=== PATIENT | female | born 1980 | race Caucasian/White ===

== ENCOUNTER 2017-03-24 21:31 | Inpatient (IN) | payer MEDICAID ==
[2017-03-24] MEDS ORDERED: ACETAMINOPHEN 650 MG SUPP PR (23:30)
[2017-03-24] MEDS ORDERED: ONDANSETRON 4 MG INJ IV (23:30)
[2017-03-24] MEDS ORDERED: DIPHENHYDRAMINE 25 MG CAP PO (23:30)
[2017-03-25] MEDS ORDERED: ERYTHROMYCIN LACTOBIONATE 500 MG in SOD CHLORIDE 0.9% 100 ML IVPB
[2017-03-25] MEDS: LACTATED RINGER'S 500 ML IV (00:01)
[2017-03-25 00:04] LABS: ADD MAN DIFF? NO; BASOPHILS % 0.1 % (0.0-2.0); EOSINOPHILS # 0.1 10^3/ul (0.0-0.5); EOSINOPHILS % 1.8 % (0.0-7.0); HEMATOCRIT 33.2 % (37.0-47.0); HEMOGLOBIN 11.4 g/dl (12.0-16.0); LYMPHOCYTES # 1.3 10^3/ul (0.8-2.9); LYMPHOCYTES % 16.6 % (15.0-51.0); MEAN CORPUSCULAR HEMOGLOBIN 28.6 pg (29.0-33.0); MEAN CORPUSCULAR HGB CONC 34.3 g/dl (32.0-37.0); MEAN CORPUSCULAR VOLUME 83.2 fl (82.0-101.0); MEAN PLATELET VOLUME 8.9 fl (7.4-10.4); MONOCYTE # 0.5 10^3/ul (0.3-0.9); MONOCYTES % 6.7 % (0.0-11.0); NEUTROPHIL # 5.9 10^3/ul (1.6-7.5); NEUTROPHILS % 74.2 % (39.0-77.0); PLATELET COUNT 259 10^3/UL (140-415); RED BLOOD COUNT 3.99 10^6/ul (4.20-5.40); RED CELL DISTRIBUTION WIDTH 13.9 % (11.5-14.5)
[2017-03-25] MEDS: AMPICILLIN 2 GM/NS (PMX) 100 ML IV (00:06)
[2017-03-25] MEDS: MAGNESIUM SULFATE 4 GM/100 ML 100 ML IV (00:11)
[2017-03-25 00:12] LABS: RUPTURE FETAL MEMBRANES POSITIVE (NEGATIVE)
[2017-03-25] MEDS: BETAMET NA PHOS/AC(6 MG/ML) 5ML INJ IM ×2 (00:13→17:41)
[2017-03-25 00:24] LABS: INR 0.86; PARTIAL THROMBOPLASTIN TIME 28.1 Sec (25.0-35.0); PROTIME 11.8 Sec (11.9-14.9); PT RATIO 0.9
[2017-03-25] MEDS: MAGNESIUM SULFATE 20 GM/500 ML 500 ML IV ×3 (00:45→20:07)
[2017-03-25] MEDS: AZITHROMYCIN 500MG/NS (PMX) 250 ML IV (02:09)
[2017-03-25] MEDS: AMPICILLIN 1 GM/NS (PMX) 50 ML IV ×6 (04:03→23:30)
[2017-03-25 07:08] LABS: MAGNESIUM 4.8 mg/dl (1.7-2.5)
[2017-03-25] MEDS: PRENATAL VITAMIN PO ×2 (08:32→09:39)
[2017-03-25] MEDS: URSODIOL 300 MG CAP PO ×3 (09:44→21:52)
[2017-03-25] MEDS: DOCUSATE SODIUM 100 MG CAP PO (09:44)
[2017-03-25] MEDS: LACTATED RINGER'S 1,000 ML IV (10:23)
[2017-03-25] MEDS: FAMOTIDINE 20 MG TAB PO ×2 (10:30→21:17)
[2017-03-25 12:23] LABS: MAGNESIUM 5.3 mg/dl (1.7-2.5)
[2017-03-25] MEDS: TERBUTALINE 1 MG/ML INJ SC (17:43)
[2017-03-25] MEDS: CITRIC ACID/SODIUM CITRATE 15 ML CUP PO (18:30)
[2017-03-25] MEDS ORDERED: morphine SULFATE/PF (10 MG/10 ML) INJ (19:44)
[2017-03-25] MEDS: CEFAZOLIN 2 GM/50 ML (PMX) 50 ML IVPB (19:55)
[2017-03-25] MEDS ORDERED: PHENYLephrine (100 MCG/ML) 5ML SYG ×7 (19:56→20:34)
[2017-03-25] MEDS ORDERED: NALOXONE (0.4 MG/ML) INJ IV (20:30)
[2017-03-25] MEDS ORDERED: HYDROmorphONE 0.5 MG/0.5 ML SYG IV ×2 (20:30)
[2017-03-25] MEDS ORDERED: FENTAnyl 50 MCG/ML VIAL IV ×2 (20:30)
[2017-03-25] MEDS ORDERED: METOCLOPRAMIDE 10 MG INJ IV (20:30)
[2017-03-25] MEDS ORDERED: ONDANSETRON 4 MG INJ IV ×2 (20:30)
[2017-03-25] MEDS ORDERED: HYDROmorphONE (0.2 MG/ML) 10ML SYG IV (20:30)
[2017-03-25] MEDS ORDERED: KETOROLAC 30 MG INJ IV (20:30)
[2017-03-25] MEDS ORDERED: VASOPRESSIN 20 UNITS INJ (20:36)
[2017-03-25] MEDS ORDERED: OXYTOCIN 30 UNITS/LR 500 ML IV (21:21)
[2017-03-25] MEDS: DIPHENHYDRAMINE 50 MG INJ IV ×2 (21:52→23:20)
[2017-03-25] MEDS: OXYTOCIN 30 UNITS/LR 500 ML IV (21:53)
[2017-03-25 22:23] LABS: RAPID PLASMA REAGIN NONREACTIVE (NR)
[2017-03-25] MEDS: HYDROmorphONE (0.2 MG/ML) 10ML SYG IV (23:14)
[2017-03-25 23:35] LABS: HEPATITIS B SURFACE ANTIGEN NEGATIVE (NEGATIVE)
[2017-03-26] MEDS ORDERED: LANOLIN 7 GM TUBE TOP (01:30)
[2017-03-26] MEDS ORDERED: METHYLERGONOVINE 0.2 MG INJ IM (01:30)
[2017-03-26] MEDS ORDERED: CARBOPROST 250 MCG INJ IM (01:30)
[2017-03-26] MEDS ORDERED: OXYTOCIN 30 UNITS/LR 500 ML IV (01:30)
[2017-03-26] MEDS ORDERED: MISOPROSTOL 200 MCG TAB PR (01:30)
[2017-03-26] MEDS ORDERED: ZOLPIDEM 5 MG TAB PO (01:30)
[2017-03-26] MEDS ORDERED: ONDANSETRON 4 MG INJ IV (01:30)
[2017-03-26] MEDS ORDERED: DIPHENHYDRAMINE 50 MG INJ IV (01:30)
[2017-03-26] MEDS: CEFAZOLIN 2 GM/50 ML (PMX) 50 ML IV ×3 (01:44→17:19)
[2017-03-26] MEDS: LACTATED RINGER'S 1,000 ML IV ×8 (01:45→20:52)
[2017-03-26] MEDS: DIPHENHYDRAMINE 50 MG INJ IV ×3 (05:03→18:00)
[2017-03-26] MEDS ORDERED: URSODIOL 300 MG CAP PO (09:00)
[2017-03-26] MEDS: URSODIOL 300 MG CAP PO ×3 (09:53→21:24)
[2017-03-26] MEDS: FAMOTIDINE 20 MG TAB PO ×2 (09:53→21:24)
[2017-03-26] MEDS: SENNA/DOCUSATE NA (8.6MG/50MG) TAB PO ×2 (09:53→21:24)
[2017-03-26] MEDS: PRENATAL VITAMIN PO (09:53)
[2017-03-26 10:56] LABS: ADD MAN DIFF? NO
[2017-03-26 11:08] LABS: BASOPHILS % 0.1 % (0.0-2.0); HEMATOCRIT 24.5 % (37.0-47.0); HEMOGLOBIN 8.3 g/dl (12.0-16.0); LYMPHOCYTES # 1.1 10^3/ul (0.8-2.9); LYMPHOCYTES % 10.1 % (15.0-51.0); MEAN CORPUSCULAR HGB CONC 33.9 g/dl (32.0-37.0); MEAN CORPUSCULAR VOLUME 85.7 fl (82.0-101.0); MEAN PLATELET VOLUME 9.3 fl (7.4-10.4); MONOCYTE # 0.7 10^3/ul (0.3-0.9); MONOCYTES % 5.9 % (0.0-11.0); NEUTROPHIL # 9.1 10^3/ul (1.6-7.5); NEUTROPHILS % 83.1 % (39.0-77.0); PLATELET COUNT 266 10^3/UL (140-415); RED BLOOD COUNT 2.86 10^6/ul (4.20-5.40); RED CELL DISTRIBUTION WIDTH 14.5 % (11.5-14.5)
[2017-03-26 11:08] LABS: WHITE BLOOD COUNT 10.9 10^3/ul (4.8-10.8)
[2017-03-26] MEDS: KETOROLAC 30 MG INJ IV (15:12)
[2017-03-26] MEDS: OXYCODONE/ACETAMINOPHEN (5/325) TAB PO (21:25)
[2017-03-27] MEDS: IBUPROFEN 600 MG TAB PO ×5 (00:34→23:49)
[2017-03-27] MEDS: LACTATED RINGER'S 1,000 ML IV ×5 (01:03→09:39)
[2017-03-27] MEDS: SENNA/DOCUSATE NA (8.6MG/50MG) TAB PO ×2 (10:14→21:59)
[2017-03-27] MEDS: URSODIOL 300 MG CAP PO ×3 (10:14→21:59)
[2017-03-27] MEDS: INFLUENZA VIRUS VACCINE 0.5 ML (DISPENSING) IM* (10:14)
[2017-03-27] MEDS: FAMOTIDINE 20 MG TAB PO ×2 (10:14→21:59)
[2017-03-27] MEDS: PRENATAL VITAMIN PO (10:36)
[2017-03-27] MEDS: FERROUS GLUCONATE (EC) 325 MG TAB PO ×2 (13:24→21:59)
[2017-03-27] MEDS: OXYCODONE/ACETAMINOPHEN (5/325) TAB PO (16:32)
[2017-03-28] MEDS: IBUPROFEN 600 MG TAB PO ×2 (05:50→11:59)
[2017-03-28] MEDS: OXYCODONE/ACETAMINOPHEN (5/325) TAB PO ×2 (06:36→07:53)
[2017-03-28] MEDS: FAMOTIDINE 20 MG TAB PO (09:52)
[2017-03-28] MEDS: PRENATAL VITAMIN PO (09:52)
[2017-03-28] MEDS: URSODIOL 300 MG CAP PO ×2 (09:52→12:44)
[2017-03-28] MEDS: SENNA/DOCUSATE NA (8.6MG/50MG) TAB PO (09:52)
[2017-03-28] MEDS: FERROUS GLUCONATE (EC) 325 MG TAB PO (09:52)
[2017-03-28] MEDS: DIPHTH/TET/ACEL PERTUSS (ADULT) 0.5 ML VIAL IM* (09:53)
== END 2017-03-28 16:00 | disposition home or self-care (01) | DRG 765 ==
LOC: OBT 21:31 → L-D 03-25 02:03 → PP1 03-26 00:45 → L-D 21:33 → OBT 23:15 → L-D 23:16
PROVIDERS: Obstetrics & Gynecology
PROC: 10D00Z1 Extraction of Products of Conception, Low, Open Approach (ICD-10-PCS; principal; 2017-03-25 20:00)
DX: O60.14X0 Preterm labor third trimester with preterm delivery third trimester, not applicable or unspecified (principal); O30.043 Twin pregnancy, dichorionic/diamniotic, third trimester; Z3A.33 33 weeks gestation of pregnancy; Z37.2 Twins, both liveborn; O32.1XX0 Maternal care for breech presentation, not applicable or unspecified; O32.2XX0 Maternal care for transverse and oblique lie, not applicable or unspecified
CPT/HCPCS: 76815; 83735; 84112; 85025; 85610; 85730; 86592; 86850; 86900; 86901; 87340; 88307; 90686; 90715; 99464